=== PATIENT | female | born 1980 | race Caucasian/White ===

== ENCOUNTER → 2019-04-01 | Outpatient (CLI) | payer OTHER ==
[~2019-04-01] MED LIST: /LOR25TA PO; ABIL10TA9 PO; ACET500C OR; ADDE10CA3 PO; ADDERALL IR PO; ATIV0.5T PO; CETI10TA PO; GABA-843 PO; GABA300C2 PO; GRAL600T PO; HAIRTAB5 PO; HYDR-3719 PO; HYDR7.5T38 PO; IBUP800T PO; LAMI25TA PO; LISI2.5T OR; LYRI75CA PO; METH2.5T48 PO; NUCY50TA PO; PRAV40TA2 PO; SPIR-10 PO; SYNT50TA OR; TAB-TAB PO; TOPA50TA PO; TYLE650T25 PO; VENL37TA PO; ZANA4CAP PO; ZYRT10CA PO; [UNRECOGNIZED DRUG - OTHER] PO; estrogen PO; soma PO
--- NOTE | 2019-04-01 10:50 | REP ---
Clinical: Anatomical evaluation. Comparison: None . Findings: Examination demonstrates a single live intrauterine in transverse (head to maternal left) presentation. motion is identified by technologist. Placenta is noted anterior and grade zero without evidence for placenta previa or abruption. Amniotic fluid volume is normal. Cervix measures 4.2 cm in length and appears closed. No evidence for nuchal cord. Gestational age by current measurements 20 weeks 1 day with ERICK 08/18/2019 . FHR equals 153 beats per minute. BPD 5.0 cm 21 weeks 1 day HC 17.5 cm 20 weeks 0 days AC 14.9 cm 20 weeks 1 day FL 3.3 cm 20 weeks 2 days HL 3.1 cm 20 weeks 2 days HC/AC ratio 1.17 Estimated weight 341 grams ( 49th percentile). Anatomical assessment demonstrates normal structures including cranium, choroid plexus, cavum, cerebellum/posterior fossa, facial features, lungs, diaphragm, stomach, cord insertion/three-vessel cord, bladder, and extremities. Limited evaluation of the heart/ventricular outflow tracts, kidneys and spine. Impression: Single live intrauterine demonstrating appropriate weight. Anatomical limitations as noted above may warrant reevaluation and follow-up.
== END ==
LOC: M WHC 09:22
PROVIDERS: ATTEND Obstetrics & Gynecology
DX: O34.211 Maternal care for low transverse scar from previous cesarean delivery (principal)

== ENCOUNTER → 2019-04-24 | Outpatient (REF) | payer OTHER | LOC: M PLALAB 10:55 | PROVIDERS: ATTEND Obstetrics & Gynecology | DX: Z53.9 Procedure and treatment not carried out, unspecified reason (principal); O34.211 Maternal care for low transverse scar from previous cesarean delivery ==

== ENCOUNTER → 2019-05-16 | Outpatient (CLI) | payer OTHER | LOC: M WHC 09:21 | PROVIDERS: ATTEND Obstetrics & Gynecology | DX: O24.112 Pre-existing type 2 diabetes mellitus, in pregnancy, second trimester (principal) ==

== ENCOUNTER → 2019-05-23 | Outpatient (CLI) | payer OTHER ==
--- NOTE | 2019-05-23 14:44 | REP ---
OB ULTRASOUND: Real-time sonographic evaluation of the gravid uterus performed. There is a single living intrauterine gestation. The estimated gestational age is 27 weeks 4 days, based on prior ultrasound, EDC 08/18/2019. Today's measurements indicate greater than expected growth. Biometry and Growth: BPD 75 mm = 30 weeks 2 day, 88th percentile HC 271 mm = 29 weeks 4 days, 91st percentile AC 268 mm = 30 weeks 6 days, over 95th percentile FL 57 mm = 30 weeks 0 days, over 95th percentile HC/AC ratio 1.01 within normal range of 1.0 to 1.18. Estimated weight 1572 grams over 97th percentile. SEEN/GROSSLY UNREMARKABLE Lateral ventricles No Posterior fossa No Upper lip Yes Four-chamber heart Yes LVOT Yes RVOT Yes Stomach Yes Cord insertion Yes Three vessel cord Yes Kidneys Yes Bladder Yes Spine Yes Intracranial structures were seen on prior study. Cervical length: Closed and measures 3.2 cm in length. heart rate: 155 beats per minute. position: Breech. Placenta: Anterior and grade 1 with no previa or abruption. Amniotic fluid: Within normal limits.
== END ==
LOC: M WHC 10:23
PROVIDERS: ATTEND Obstetrics & Gynecology
DX: O24.112 Pre-existing type 2 diabetes mellitus, in pregnancy, second trimester (principal); Z36.89 Encounter for other specified antenatal screening; Z3A.29 29 weeks gestation of pregnancy

== ENCOUNTER → 2019-06-18 | Outpatient (CLI) | payer OTHER | LOC: M WHC 15:05 | PROVIDERS: ATTEND Obstetrics & Gynecology | DX: E11.9 Type 2 diabetes mellitus without complications (principal) ==

== ENCOUNTER → 2019-06-25 | Outpatient (CLI) | payer OTHER ==
[~2019-06-25] MED LIST changes: +ACET-683 PO; +GABA-282 PO; -GABA-843 PO; +LABE20TAB PO; +METF500T13 PO; +OXYC1TAB23 PO; +PERCOCET PO; +PRENCHW PO; -TAB-TAB PO; +TAB-TAB2 PO
--- NOTE | 2019-06-26 02:39 | REP ---
Clinical: Gestational diabetes. well-being. Comparison: 05/23/2019 . Findings: Examination demonstrates a single live intrauterine in cephalic presentation. motion is identified by technologist. Placenta is noted anterior and grade I I without evidence for placenta previa or abruption. Amniotic fluid volume is greater than expected. Cervix measures 3.5 cm in length and appears closed. No evidence for nuchal cord. Gestational age by LMP 32 weeks 2 days with ERICK 08/18/2019 . Gestational age by current measurements 36 weeks 6 days FHR equals 133 beats per minute. Biophysical profile score: 8/8 Amniotic fluid index: 29.4 cm Umbilical cord SD ratio: 2.76 Estimated weight by current biometrical measurements 3920 grams (greater than 97th percentile). Impression: 1. Single live advanced sensation in cephalic presentation demonstrating greater than expected interval growth. 2. Amniotic fluid volume is above normal limits suggesting polyhydramnios. No obvious anatomical abnormality noted.
== END ==
LOC: M WHC 14:36
PROVIDERS: ATTEND Obstetrics & Gynecology
DX: Z36.89 Encounter for other specified antenatal screening (principal); Z3A.36 36 weeks gestation of pregnancy; E11.9 Type 2 diabetes mellitus without complications

== ENCOUNTER → 2019-06-25 | Outpatient (CLI) | payer OTHER | LOC: M WHC 13:24 → MERGE 13:24 | PROVIDERS: ATTEND Obstetrics & Gynecology | DX: Z36.89 Encounter for other specified antenatal screening (principal); E11.9 Type 2 diabetes mellitus without complications ==

== ENCOUNTER → 2019-06-26 | Outpatient (CLI) | payer OTHER ==
[~2019-06-26] MED LIST changes: -ACET-683 PO; -GABA-282 PO; +GABA-843 PO; -LABE20TAB PO; -METF500T13 PO; -OXYC1TAB23 PO; -PERCOCET PO; -PRENCHW PO; +TAB-TAB PO; -TAB-TAB2 PO
== END ==
LOC: M WHC 09:51
PROVIDERS: ATTEND Obstetrics & Gynecology
DX: O24.313 Unspecified pre-existing diabetes mellitus in pregnancy, third trimester (principal)

== ENCOUNTER → 2019-07-03 | Outpatient (REF) | payer OTHER ==
[2019-07-03 10:33] LABS: HEMATOCRIT 35.2 % (36.0-47.0); MEAN CORPUSCULAR HEMOGLOBIN 24.2 pg (27.0-33.0); MEAN CORPUSCULAR HGB CONC 31.3 g/dl (32.0-36.5); MEAN CORPUSCULAR VOLUME 77.4 fl (80.0-96.0); PLATELET COUNT, AUTOMATED 283 10^3/uL (150-450); RED BLOOD COUNT 4.55 10^6/uL (4.00-5.40); WHITE BLOOD COUNT 11.8 10^3/uL (4.0-10.0)
[2019-07-03 11:43] LABS: HEMOGLOBIN A1c 7.7 %
== END ==
LOC: M PLALAB 08:52
PROVIDERS: ATTEND Obstetrics & Gynecology
DX: O24.313 Unspecified pre-existing diabetes mellitus in pregnancy, third trimester (principal)

== ENCOUNTER 2019-07-09 20:14 | Emergency (ER) | payer OTHER ==
[~2019-07-09] VITALS: Ht 167.6 cm; Wt 126.7 kg
[2019-07-09 20:15] VITALS: BP 141/75
[2019-08-15] MEDS ORDERED: OXYC1TAB23 PO (16:43)
== END 2019-07-09 21:10 | disposition admitted as inpatient to this hospital (09) ==
LOC: M ED 20:14
DX: R10.9 Unspecified abdominal pain (principal); Z53.21 Procedure and treatment not carried out due to patient leaving prior to being seen by health care provider

== ENCOUNTER 2019-07-09 20:33 | Outpatient (CLI) | payer OTHER ==
[~2019-07-09] VITALS: Ht 167.6 cm; Wt 126.9 kg
[2019-07-09 20:56] VITALS: BP 129/72
[2019-07-09 21:30] LABS: HEMATOCRIT 34.2 % (36.0-47.0); HEMOGLOBIN 10.7 g/dl (12.0-15.5); MEAN CORPUSCULAR HEMOGLOBIN 23.4 pg (27.0-33.0); MEAN CORPUSCULAR HGB CONC 31.3 g/dl (32.0-36.5); MEAN CORPUSCULAR VOLUME 74.8 fl (80.0-96.0); PLATELET COUNT, AUTOMATED 274 10^3/uL (150-450); RED BLOOD COUNT 4.57 10^6/uL (4.00-5.40)
[2019-07-09 21:40] LABS: INR 1.01
[2019-07-09 21:41] LABS: PARTIAL THROMBOPLASTIN TIME 26.2 SECONDS (25.0-38.4)
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
== END 2019-07-10 00:15 | disposition home or self-care (01) ==
LOC: M LDO 20:33
PROVIDERS: ATTEND Advanced Practice Midwife
DX: Z04.3 Encounter for examination and observation following other accident (principal); W18.2XXA Fall in (into) shower or empty bathtub, initial encounter; Z3A.35 35 weeks gestation of pregnancy; Y99.8 Other external cause status

== ENCOUNTER → 2019-07-17 | Outpatient (REF) | payer OTHER ==
[~2019-07-17] MED LIST changes: +METF500T13 PO
== END ==
LOC: M SFHCWAGY 17:31
PROVIDERS: ATTEND Obstetrics & Gynecology
DX: O09.523 Supervision of elderly multigravida, third trimester (principal)

== ENCOUNTER → 2019-07-18 | Outpatient (CLI) | payer OTHER ==
--- NOTE | 2019-07-19 03:25 | REP ---
Clinical: Anatomical evaluation. Comparison: 07/03/2019. Findings: Examination demonstrates a single live intrauterine in transverse lie presentation. motion is identified by technologist. Placenta is noted anterior and grade I I I without evidence for placenta previa or abruption. Amniotic fluid volume is normal. Cervix appears closed. No evidence for nuchal cord. Gestational age by first US 35 weeks 4 days with ERICK 08/18/2019 . FHR equals 136 beats per minute. Biophysical profile score: 8/8 Amniotic fluid index: 19.6 cm Impression: Single live intrauterine in transverse lie. Biophysical profile score and amniotic fluid volume are normal.
== END ==
LOC: M WHC 15:14
PROVIDERS: ATTEND Obstetrics & Gynecology
DX: O24.313 Unspecified pre-existing diabetes mellitus in pregnancy, third trimester (principal); Z3A.35 35 weeks gestation of pregnancy; O32.2XX0 Maternal care for transverse and oblique lie, not applicable or unspecified

== ENCOUNTER → 2019-07-23 | Outpatient (CLI) | payer OTHER ==
[~2019-07-23] MED LIST changes: +ACET-683 PO; +LABE20TAB PO; +PERCOCET PO; +PRENCHW PO
== END ==
LOC: M LABSMTC 11:03
PROVIDERS: ATTEND Anesthesiology
DX: Z03.818 Encounter for observation for suspected exposure to other biological agents ruled out (principal); Z11.59 Encounter for screening for other viral diseases
CPT/HCPCS: C9803; U0003

== ENCOUNTER 2019-07-24 20:57 | Inpatient (IN) | payer OTHER ==
[~2019-07-24] VITALS: Ht 167.6 cm; Wt 135.0 kg
[~2019-07-24 20:57] MED LIST changes: -ACET-683 PO; -LABE20TAB PO; -METF500T13 PO; -PERCOCET PO; -PRENCHW PO
[2019-07-24] MEDS ORDERED: metFORMIN (GLUCOPHAGE) 500 MG TAB PO SCH (21:00)
[2019-07-24 21:25] VITALS: BP 146/85
[2019-07-24] MEDS ORDERED: D5W/0.9% SODIUM CHLORIDE 1,000 ML IV SCH (21:37)
[2019-07-24] MEDS: BETAMETHASONE SOLUSPAN 6MG/ML 5ML VIAL (J0702 PER 3MG) IM SCH (21:46)
--- NOTE | 2019-07-24 22:03 | HPEPDOC ---
Obstetrical History & Physical General Date of Admission Jul 24, 2019 at 20:57 Primary Care Physician: MIREILLE RAMOS CNM History of Present Illness Patient is a 38-year-old female who is a at 36.4 weeks gestation with an ERICK of 08/16/19 baed off of her LMP and consistent with her first trimester ultrasound.She initiated care in her first trimester with [facility] and transferred care to [facility] in her second trimester. She was diagnosed with pregestational diabetes and placed on insulin, which she was not compliant with. Patient was compliant with visits but not with recommended care. She did not do her echo that was scheduled in March for her to do. Her is also complicated by AMA status, morbid obesity, and ADHD (which she is still taking Adderall for). She presents today with recommendations from Dr. Mcclelland for glucose stabilization and betamethasone injections. She reports active movement. She denies leaking of fluid, vaginal bleeding or contractions. Chief Complaint: Other (betamethasone injections with glycemic control before section) Information Provided By: Patient Age: 38 : 6 Term: 2 Pre-term: 0 Abortions: 3 Livin Care Care: Good Care (poor compliance with management) Dating Final EDC: Aug 16, 2019 Final EDC by: LMP EGA at Admission: 36.4 Antepartum Course Diagnos(e)s AMA Type II diabetes (pregestational diabetes)-poorly controlled Prior section PCOS ADHD, depression, anxiety Height (inches): 66 Pre- weight (lbs.): 252 Admission Weight (lbs.): 297 Change in Weight (lbs.): 45 Past Medical History Past Obstetrical History #1: Date of Delivery: Aug 12, 2006 Gestation: 40 Type of Delivery: Spontaneous Vaginal Del. Sex of Infant: Male (7 lbs 8 oz) Complications: Yes (oligohydramnios) Past Obstetrical History #2: Past Obstetrical History: Multigravida Date of Delivery: Feb 10, 2016 Gestation: 39.2 Type of Delivery: Ceserean section Sex of Infant: Male (9 lbs 3 oz) Complications: Yes (AMA and GDM) [employer] History: Spontaneous , Abnormal Pap, Human papillomavirus(HPV) Past Medical History Medical History morbid obesity pregestational diabetes PCOS GERD Migraines Psoriasis Surgical History: section, Dilatation and Curettage, Other (endoscopy and colonoscopy, oral surgery) Family History Significant Family History: Cancer (prostate cancer, bone cancer, throat ca ncer), Heart disease, Hypertension, Hyperlipidemia, Other (stroke, migraines, Alzheimers, stroke, GA) Social History Marital Status: Family situation: Spouse/partner home Psychosocial History: Anxiety, Att. deficit disorder, Depression * Smoker: non-smoker Alcohol: Denies Drugs: denies Abuse Violence Screening Have you been hit/kicked/slapp: No Have you been sexually assault: No Allergies Coded Allergies: NSAIDS (Non-Steroidal Anti-Inflamma (Verified Allergy, Intermediate, swelling, 07/24/19) meloxicam (Verified Allergy, Mild, rash, 07/24/19) tramadol (Verified Allergy, Mild, swelling and redness, 07/24/19) pregabalin (Verified Adverse Reaction, Intermediate, nightmares/depression, 07/24/19) Medications Scheduled Dextroamphetamine/Amphetamine (Adderall Xr 10 mg Capsule) 10 Mg Cap, 30 MG PO DAILY Metformin HCl (Metformin HCl) 500 Mg Tablet, 1 TAB PO BID [Adderall Ir] , 10 MG PO DAILY Physical Examination Physical Examination GENERAL: Alert and oriented times three. BREAST: . ABDOMEN: Gravid and non-tender to touch. FETUS: Is vertex (VTX) by sterile vaginal examination (SVE), fetus is vertex (VTX) by Javi. HEART RATE: Regular rate and rhythm. LUNGS: Clear to auscultation (CTA). EXTREMITIES: No edema. No clonus. Deep tendon reflexes (DTRs) + 2. Laboratory Data 24H LABS Laboratory Tests 2 07/24/19 21:39: Bedside Glucose (Misc Panel) 138H Urine Culture: No Growth Pertinent Laboratoy Data Blood Type: A+ RBC Antibody Screen: Negative HIV: Negative Hepatitis B: Negative Hepatitis C: Negative Rapid Plasma Reagin: Nonreactive Rubella: Immune Chlamydia/Gonorrhea: Negative Group B Streptococcus: Negative Quad Screen Test: Negative Diag/Inter Therapy NIPT testing is low risk Steroid Therapy Steroid Therapy: Yes Date #1: Jul 24, 2019 Reason early delivery with poor glycemic control Assessment Heart Rate (FHR): 150 Variability: Moderate Accelerations: Positive Decelerations: None Tocometer Contractions: Yes Frequency: irregular Multi-drug resistant Organism: No history of MDRO Assessment/Plan Assessment IUP at 36.4 weeks gestation Category I FHR tracing prior section-desires repeat pregestational diabetes with poor control AMA morbid obesity Plan Admit to L&D. Plan of care collaborated with Dr. Mcclelland. KIRBY ad constantin. Diet: carbohydrate counted. Saline lock to be started. Counseled on plan of care. NSTs every 4 hours. Insulin drip per protocol/order. Fingersticks every 2 hours. Betamethasone IM injection now and again in 24 hours. Patient will have her section Monday morning. MIREILLE RAMOS CNM Jul 24, 2019 22:03
[2019-07-24] MEDS: NS 1,000 ML IV SCH (22:32)
[2019-07-24] MEDS: INSULIN REGULAR IN 0.9 % NACL 100 UNIT in IV 1 EA IV SCH ×2 (22:43)
[2019-07-24 23:07] VITALS: BP 134/65
[2019-07-24] MEDS ORDERED: METF500T13 PO (23:28)
[2019-07-25] VITALS (14 sets, daily range): BP systolic 124–145; BP diastolic 58–78
[2019-07-25] MEDS: INSULIN IV RATE CHANGE DOCUMENTATION ML/HR XX SCH ×10 (04:17→21:27)
[2019-07-25] MEDS: NS 1,000 ML IV SCH ×3 (06:04→22:01)
[2019-07-25] MEDS: ACETAMINOPHEN 500 MG TAB PO PRN ×2 (13:20→20:53)
[2019-07-25] MEDS: BETAMETHASONE SOLUSPAN 6MG/ML 5ML VIAL (J0702 PER 3MG) IM SCH (21:59)
[2019-07-25] MEDS: INSULIN REGULAR IN 0.9 % NACL 100 UNIT in IV 1 EA IV SCH ×2 (22:01)
[2019-07-25] MEDS ORDERED: ceFAZolin SOD 2 GM in IV 1 EA IV ONE (22:15)
[2019-07-25] MEDS ORDERED: BICITRA 30ML SOLN UDC PO ONE (22:15)
[2019-07-26] VITALS (10 sets, daily range): BP systolic 122–152; BP diastolic 63–88
[2019-07-26] MEDS: INSULIN IV RATE CHANGE DOCUMENTATION ML/HR XX SCH ×2 (02:23→03:04)
[2019-07-26 03:19] LABS: HEMATOCRIT 28.7 % (36.0-47.0); MEAN CORPUSCULAR HEMOGLOBIN 23.5 pg (27.0-33.0); MEAN CORPUSCULAR HGB CONC 31.4 g/dl (32.0-36.5); MEAN CORPUSCULAR VOLUME 74.9 fl (80.0-96.0); PLATELET COUNT, AUTOMATED 225 10^3/uL (150-450); RED BLOOD COUNT 3.83 10^6/uL (4.00-5.40); WHITE BLOOD COUNT 11.8 10^3/uL (4.0-10.0)
[2019-07-26 03:39] LABS: ALT/SGPT 12 U/L (12-78); BILIRUBIN,TOTAL 0.2 MG/DL (0.2-1.0); CREATININE FOR GFR 0.79 MG/DL (0.55-1.30); GLOMERULAR FILTRATION RATE > 60.0 (>60); LDH LACTATE DEHYDROGENASE 187 U/L (84-246); URIC ACID 6.3 MG/DL (2.6-6.0)
[2019-07-26] MEDS: NS 1,000 ML IV SCH (04:08)
[2019-07-26] MEDS ORDERED: METOCLOPRAMIDE INJ 10MG/2ML VIAL (J2765 PER 1) IV PRN (07:00)
[2019-07-26] MEDS ORDERED: diphenhydrAMINE 50MG/ML VIAL (J1200) IV PRN ×2 (07:00→10:00)
[2019-07-26] MEDS ORDERED: NALOXONE INJ 0.4MG/1ML VIAL (J2310 PER 1MG) IV PRN ×2 (07:00)
[2019-07-26] MEDS ORDERED: ONDANSETRON 4MG/2ML VIAL IV PRN ×3 (07:00→10:00)
[2019-07-26] MEDS ORDERED: NALBUPHINE HCL 10 MG/ML AMP (J2300) IV PRN ×2 (07:00→10:00)
[2019-07-26] MEDS ORDERED: dexameTHASONE 4 MG/ML 1ML VIAL (J1100 PER 1MG) As Ordered ONE (07:10)
[2019-07-26] MEDS ORDERED: ONDANSETRON 4MG/2ML VIAL As Ordered ONE (07:10)
[2019-07-26] MEDS ORDERED: MORPHINE PRES-FREE INJ 10 MG/10 ML VIAL (J2274) As Ordered ONE (07:10)
[2019-07-26] MEDS ORDERED: OXYTOCIN INJ 10 UNITS/ML VIAL (J2590) As Ordered ONE (07:16)
[2019-07-26] MEDS ORDERED: ACETAMINOPHEN 1000MG 100ML IV BTL (OFIRMEV) (J0131 PER 10MG) As Ordered ONE (07:57)
[2019-07-26] MEDS ORDERED: ceFAZolin 1GM VIAL (J0690 PER 500MG) As Ordered ONE (08:10)
[2019-07-26] MEDS ORDERED: propofoL 200 MG/20 ML VIAL As Ordered ONE (08:55)
[2019-07-26] MEDS ORDERED: LR 1,000 ML IV SCH (09:21)
[2019-07-26] MEDS ORDERED: OXYTOCIN DRIP 30 UNITS in IV 1 EA IV SCH (09:21)
[2019-07-26] MEDS ORDERED: MEASLES,MUMPS,RUBELLA VACCINE INJ (MMR-II) (90707) SC SCH (09:30)
[2019-07-26] MEDS ORDERED: RHOGAM 300 MCG (1500 IU) INJ (J2790) IM SCH (09:30)
[2019-07-26] MEDS ORDERED: MOM 30ML SUSPENSION UDC PO PRN (09:30)
[2019-07-26] MEDS ORDERED: OXYTOCIN 30 UNITS IN 0.9% NaCl 500ML IV BAG (J2590) As Ordered ONE (09:33)
--- NOTE | 2019-07-26 09:43 | ROOPDOC ---
[facility] Report Of Operation Report of Operation DATE OF PROCEDURE: 07/26/19 SURGEON: Dixie Mcclelland M.D. SENIOR INFORMATION SYSTEMS ARCHITECT: Caleb Holley DO ANESTHESIA: Spinal PREOPERATIVE DIAGNOSIS: 1. History of prior section 2. Intrauterine at 37 weeks 3. Satisfied parity with undesired fertility 4. Poorly controlled pre-gestational diabetes POSTOPERATIVE DIAGNOSIS: 1. History of prior section 2. Intrauterine at 37 weeks 3. Satisfied parity with undesired fertility 4. Poorly controlled pre-gestational diabetes ESTIMATED BLOOD LOSS: 800 mL URINE OUTPUT: 100 mL INTRAVENOUS FLUIDS: 2000 mL lactated Ringer solution PREOPERATIVE ANTIBIOTICS: 3 g of Ancef OPERATIVE FINDINGS: Liveborn female infant, Apgars 9 and 9. Weight was 5110 g 11 lbs. 4 oz. SPECIMENS:, Placenta and bilateral segments of fallopian tubes DESCRIPTION OF PROCEDURE: After informed consent was obtained and written consent was reviewed. The patient was brought to the operating room where spinal anesthesia was placed. She was then placed in the supine position with a left lateral tilt. Jeter catheter was placed and to gravity. Patient was then prepped and draped in the normal sterile fashion. A timeout operating room was performed identifying the patient, procedure be performed as well as drug allergies. Anesthesia was tested and deemed to be adequate. Pfannenstiel skin incision was made and this was carried down to the underlying rectus fascia. The fascia was then scored and this incision was extended bilaterally. The fascia was then dissected off the underlying rectus muscle superiorly and inferiorly. The rectus muscles were then in the midline. The peritoneum is then entered. Vesicouterine peritoneum was then tented and excised and a bladder flap was created. Mobius retractor was then placed. Next, a curvilinear incision was then made in the lower uterine segment. Amniotomy was performed, productive, clear fluid. The head was brought to the level of the incision atraumatically and delivered along the shoulders and corpus. The cord was clamped x 2. The infant was brought over to the warmer with a good cry. Placenta was drained and delivered grossly intact. The uterus was cleared of all clots and debris and the uterine incision was then closed in 2 layers using 0 Vicryl, first in a running locking fashion followed by second layer for imbrication. Several [id number] stitches was placed revealing hemostasis. Attention was then turned to a bilateral [place] tubal ligation. A window was created in the right mesosalpinx. This area was doubly ligated with 3-0 chromic and was excised with good hemostasis noted. In a similar fashion, the left fallopian tube was placed on traction. A window was created in the mesosalpinx. This area was doubly ligated with 3-0 chromic and was excised, and hemostasis was noted. The abdomen suctioned. Surgical sites reinspected and noted be hemostatic. The retractor was then removed. The anterior peritoneum was then reapproximated with 3-0 Vicryl. The rectus muscles were reapproximated 3-0 Vicryl. The fascia was then closed using 0 Vicryl in a running nonlocking fashion. The subcutaneous tissues was then irrigated and suctioned. Subcutaneous tissue was reapproximated using 3-0 Vicryl. Several subdermal stitch is placed using 3-0 Vicryl and the skin was closed with 4-0 Monocryl and subcuticular fashion. This incision was then cleaned and dried and was dressed. The patient was then taken to recovery in stable condition. All counts were correct. My instructor adjunct surgical technician Dr. Holley played in an essential role during the operation. They assisted with tissue identification retraction, delivery of the , as well as wound closure. DIXIE MCCLELLAND MD. Jul 26, 2019 09:43
[2019-07-26] MEDS ORDERED: fentaNYL 100 MCG/2 ML INJECTION (J3010) As Ordered ONE (09:59)
[2019-07-26] MEDS ORDERED: MEPERIDINE INJ 25 MG/ML VIAL (J2175) IV PRN (10:00)
[2019-07-26] MEDS ORDERED: oxyCODONE 5MG TAB PO PRN (10:00)
[2019-07-26] MEDS ORDERED: HYDROMORPHONE HCL 0.5 MG/ 0.5 ML SYRINGE (J1170 PER 1) IV PRN (10:00)
[2019-07-26] MEDS: fentaNYL 100 MCG/2 ML INJECTION (J3010) IV PRN ×2 (10:01→10:18)
[2019-07-26] MEDS: metFORMIN (GLUCOPHAGE) 500 MG TAB PO SCH (18:29)
[2019-07-26] MEDS: DOCUSATE SODIUM 100 MG CAP PO SCH (21:12)
[2019-07-26] MEDS: PERCOCET 5MG/325MG TAB PO PRN (21:12)
[2019-07-27 02:00] VITALS: BP 132/67
[2019-07-27] MEDS: PERCOCET 5MG/325MG TAB PO PRN ×4 (05:52→23:21)
[2019-07-27 06:00] VITALS: BP 144/74
--- NOTE | 2019-07-27 07:17 | IPNPDOC ---
Text Note Date of Service The patient was seen on 07/27/19. NOTE PO #1 Feels well. Adequate pain management. OOB independently. Voiding. VSS, afebrile, normotensive Breasts soft, pumping Fundus firm Dressing intact, old drainage Lochia rubra scant without odor PO #1 Routine care. Consider discharge tomorrow VS,Fishbone, I+O VS, Fishbone, I+O Vital Signs Date Time Temp Pulse Resp B/P (MAP) Pulse Ox O2 Delivery O2 Flow Rate FiO2 07/27/19 06:22 18 07/27/19 06:00 98.2 77 144/74 (97) 97 Room Air I&O- Last 24 Hours up to 6 AM 07/27/19 06:00 Intake Total 2085 ml Output Total 1075 ml Balance 1010 ml Roxanne Skaggs CNM Jul 27, 2019 07:17
[2019-07-27 07:44] LABS: HEMATOCRIT 24.6 % (36.0-47.0); HEMOGLOBIN 7.6 g/dl (12.0-15.5); MEAN CORPUSCULAR HEMOGLOBIN 23.5 pg (27.0-33.0); MEAN CORPUSCULAR HGB CONC 30.9 g/dl (32.0-36.5); MEAN CORPUSCULAR VOLUME 75.9 fl (80.0-96.0); PLATELET COUNT, AUTOMATED 226 10^3/uL (150-450); RED BLOOD COUNT 3.24 10^6/uL (4.00-5.40); WHITE BLOOD COUNT 14.2 10^3/uL (4.0-10.0)
[2019-07-27] MEDS: metFORMIN (GLUCOPHAGE) 500 MG TAB PO SCH ×2 (08:16→18:05)
[2019-07-27] MEDS: PRENATAL VITAMINS CHEWABLE TABLET PO SCH (08:16)
[2019-07-27] MEDS: DOCUSATE SODIUM 100 MG CAP PO SCH ×2 (08:16→21:00)
[2019-07-27 10:00] VITALS: BP 137/73
[2019-07-27] MEDS: SIMETHICONE 80 MG CHEW TAB PO PRN ×2 (11:59→19:01)
[2019-07-27 14:00] VITALS: BP 157/89
[2019-07-27 18:00] VITALS: BP 149/76
[2019-07-27] MEDS ORDERED: MORPHINE 4 MG/ML 1ML VIAL/SYRINGE (J2270) IV PRN (18:00)
[2019-07-27] MEDS: LR 1,000 ML IV SCH (19:00)
[2019-07-27 22:00] VITALS: BP 148/73
[2019-07-28 02:00] VITALS: BP 149/66
[2019-07-28] MEDS: PERCOCET 5MG/325MG TAB PO PRN ×3 (06:45→18:46)
[2019-07-28] MEDS: DOCUSATE SODIUM 100 MG CAP PO SCH ×2 (08:18→21:00)
[2019-07-28] MEDS: metFORMIN (GLUCOPHAGE) 500 MG TAB PO SCH ×2 (08:18→18:44)
[2019-07-28] MEDS: SIMETHICONE 80 MG CHEW TAB PO PRN (08:18)
[2019-07-28] MEDS: PRENATAL VITAMINS CHEWABLE TABLET PO SCH (08:18)
[2019-07-28 09:52] LABS: HEMATOCRIT 24.5 % (36.0-47.0); HEMOGLOBIN 7.6 g/dl (12.0-15.5); MEAN CORPUSCULAR HEMOGLOBIN 23.7 pg (27.0-33.0); MEAN CORPUSCULAR VOLUME 76.3 fl (80.0-96.0); PLATELET COUNT, AUTOMATED 246 10^3/uL (150-450); RED BLOOD COUNT 3.21 10^6/uL (4.00-5.40)
[2019-07-28 10:00] VITALS: BP 148/86
[2019-07-28 18:00] VITALS: BP 155/77
[2019-07-29] MEDS: PERCOCET 5MG/325MG TAB PO PRN ×4 (00:26→20:46)
[2019-07-29 06:00] VITALS: BP 143/73
[2019-07-29 07:51] LABS: HEMATOCRIT 23.5 % (36.0-47.0); HEMOGLOBIN 7.3 g/dl (12.0-15.5); MEAN CORPUSCULAR HEMOGLOBIN 23.5 pg (27.0-33.0); MEAN CORPUSCULAR HGB CONC 31.1 g/dl (32.0-36.5); MEAN CORPUSCULAR VOLUME 75.6 fl (80.0-96.0); PLATELET COUNT, AUTOMATED 254 10^3/uL (150-450); RED BLOOD COUNT 3.11 10^6/uL (4.00-5.40); WHITE BLOOD COUNT 11.1 10^3/uL (4.0-10.0)
[2019-07-29] MEDS: DOCUSATE SODIUM 100 MG CAP PO SCH ×2 (08:07→20:46)
[2019-07-29] MEDS: metFORMIN (GLUCOPHAGE) 500 MG TAB PO SCH ×2 (08:07→17:51)
[2019-07-29] MEDS: PRENATAL VITAMINS CHEWABLE TABLET PO SCH (08:08)
[2019-07-29] MEDS ORDERED: LABETALOL 100 MG TAB PO SCH (09:00)
[2019-07-29] MEDS: SIMETHICONE 80 MG CHEW TAB PO PRN ×2 (14:39→20:44)
[2019-07-29] MEDS: LR 1,000 ML IV SCH (17:52)
[2019-07-29 18:05] VITALS: BP_SYST 164; BP_SYST 202; BP_DIAS 102
[2019-07-29 18:20] VITALS: BP 168/104
[2019-07-29] MEDS: LABETALOL 200 MG TAB PO SCH (19:06)
[2019-07-29 19:57] LABS: ALT/SGPT 24 U/L (12-78); BILIRUBIN,TOTAL 0.2 MG/DL (0.2-1.0); GLOMERULAR FILTRATION RATE > 60.0 (>60); LDH LACTATE DEHYDROGENASE 239 U/L (84-246); URIC ACID 5.7 MG/DL (2.6-6.0)
[2019-07-30] MEDS: PERCOCET 5MG/325MG TAB PO PRN ×3 (02:07→13:24)
[2019-07-30 05:16] VITALS: BP 146/92
[2019-07-30 07:47] VITALS: BP 142/86
[2019-07-30] MEDS: metFORMIN (GLUCOPHAGE) 500 MG TAB PO SCH (08:31)
[2019-07-30] MEDS: PRENATAL VITAMINS CHEWABLE TABLET PO SCH (08:31)
[2019-07-30 08:32] VITALS: BP 142/86
[2019-07-30] MEDS: LABETALOL 200 MG TAB PO SCH (08:32)
[2019-07-30] MEDS: DOCUSATE SODIUM 100 MG CAP PO SCH (08:32)
[2019-07-30] MEDS: LR 1,000 ML IV SCH (08:34)
[2019-07-30] MEDS ORDERED: PERCOCET PO (08:55)
[2019-07-30] MEDS ORDERED: ACET-683 PO (08:55)
[2019-07-30] MEDS ORDERED: LABE20TAB PO (08:55)
[2019-07-30] MEDS ORDERED: PRENCHW PO (08:55)
--- NOTE | 2019-07-30 09:29 | DS.PDOC ---
Discharge Summary General Date of Admission Jul 24, 2019 at 20:57 Date of Discharge 07/30/19 Attending Physician: LAUREN BROOKS MD. Discharge Summary PROCEDURES PERFORMED DURING STAY: Primary section at 37 weeks. ADMITTING DIAGNOSES: 1. IUP at 36+ weeks gestation admission for betamethasone. 2. Pregestational diabetes 3. maternal care for previous section-desires repeat with tubal ligation 4. Chronic hypertension 5. Non compliant with diabetes medication DISCHARGE DIAGNOSES: 1. Day 4 postoperative 2. Pregestational diabetes 3. Chronic hypertension. COMPLICATIONS/CHIEF COMPLAINT: Pregestational Diabetic, Macrosomia, Previous.... HISTORY OF PRESENT ILLNESS: Patient is a 38-year-old female who presented at 36 weeks gestation for control of her pregestational diabetes with insulin 2 days prior to her repeat section and for betamethasone. She was presumed to have a macrosomic fetus. She had an uncomplicated repeat section with a tubal ligation. The baby was macrosomic weighting 11+ lbs. the baby did go to the NICU for glucose instability. During her stay her Labetalol was increased to 200 mg BID. She does not desire to continue with insulin and desires to continue with metformin. She will not take insulin. DISCHARGE MEDICATIONS: Please see below. ALLERGIES: Please see below. PHYSICAL EXAMINATION ON DISCHARGE: VITAL SIGNS: Please see below. GENERAL: Alert and oriented. CARDIOVASCULAR EXAMINATION: RRR with no murmurs, gallops, or rubs. RESPIRATORY EXAMINATION: regular rate for patient. Lungs clear bilaterally. ABDOMINAL EXAMINATION: morbidly obese, dressing is intact, no erythema around dressing EXTREMITIES: 1+ pitting edema bilateral feet and legs SKIN: warm and dry LABORATORY DATA: Please see below. ACTIVITY: As tolerated. DIET: regular DISCHARGE INSTRUCTIONS: 1. Patient to be discharged to home. 2. She is to follow-up in 2 weeks and 6 weeks . 3. Education done on signs of infection, care of incision, signs of mastitis, DVT, pulmonary embolism, pain management, and hemorrhage. DISCHARGE CONDITION: Stable. Vital Signs/I&Os Vital Signs Date Time Temp Pulse Resp B/P (MAP) Pulse Ox O2 Delivery O2 Flow Rate FiO2 07/30/19 08:33 16 Room Air 07/30/19 08:32 72 142/86 07/30/19 05:16 97.9 97 I&O- Last 24 Hours up to 6 AM 07/30/19 05:59 Intake Total 180 ml Balance 180 ml Laboratory Data Labs 24H Laboratory Tests 2 07/29/19 19:00: Glomerular Filtration Rate > 60.0, Uric Acid 5.7, Total Bilirubin 0.2, Aspartate Amino Transf (AST/SGOT) 36, Alanine Aminotransferase (ALT/SGPT) 24, Lactate Dehydrogenase 239 CBC/BMP Laboratory Tests 07/29/19 19:00 Discharge Medications Scheduled Dextroamphetamine/Amphetamine (Adderall Xr 10 mg Capsule) 10 Mg Cap, 30 MG PO DAILY, (Reported) Labetalol HCl (Labetalol HCl) 200 Mg Tablet, 200 MG PO BID Metformin HCl (Metformin HCl) 500 Mg Tablet, 1 TAB PO BID, (Reported) Pnv No.118/Iron Fumarate/FA ( 19 Chewable Tablet) 1 Each Tab.chew, 1 TAB PO DAILY [Adderall Ir] , 10 MG PO DAILY, (Reported) Scheduled PRN Acetaminophen (Acetaminophen) 500 Mg Tablet, 1,000 MG PO Q12HP PRN for PAIN Oxycodone/Acetaminophen (Oxycodone-Acetaminophen 5-325) 1 Each Tablet, 1 TAB PO Q6HP PRN for MODERATE/SEVERE PAIN (PS 5-10) Allergies Coded Allergies: NSAIDS (Non-Steroidal Anti-Inflamma (Verified Allergy, Intermediate, swelling, 07/24/19) meloxicam (Verified Allergy, Mild, rash, 07/24/19) tramadol (Verified Allergy, Mild, swelling and redness, 07/24/19) pregabalin (Verified Adverse Reaction, Intermediate, nightmares/depr ession, 07/24/19) MIREILLE RAMOS CNM Jul 30, 2019 09:29
== END 2019-07-30 13:40 | disposition home or self-care (01) | DRG 540 ==
LOC: M LDI 20:57 → M OBS 07-26 11:23
PROVIDERS: ADMIT Obstetrics & Gynecology; ATTEND Obstetrics & Gynecology
PROC: 0UB70ZZ Excision of Bilateral Fallopian Tubes, Open Approach (ICD-10-PCS; 2019-07-26)
PROC: 10D00Z1 Extraction of Products of Conception, Low, Open Approach (ICD-10-PCS; principal; 2019-07-26 07:30)
DX: O24.12 Pre-existing type 2 diabetes mellitus, in childbirth (principal); E11.65 Type 2 diabetes mellitus with hyperglycemia; O99.214 Obesity complicating childbirth; E66.01 Morbid (severe) obesity due to excess calories; Z3A.36 36 weeks gestation of pregnancy; O34.211 Maternal care for low transverse scar from previous cesarean delivery; O99.344 Other mental disorders complicating childbirth; F90.9 Attention-deficit hyperactivity disorder, unspecified type; F32.9 Major depressive disorder, single episode, unspecified; F41.9 Anxiety disorder, unspecified; Z79.84 Long term (current) use of oral hypoglycemic drugs; Z91.19 Patient's noncompliance with other medical treatment and regimen; Z91.14 Patient's other noncompliance with medication regimen; Z37.0 Single live birth; Z30.2 Encounter for sterilization

== ENCOUNTER → 2023-02-01 | Outpatient (REF) ==
[~2023-02-01] MED LIST changes: +ACET-683 PO; +GABA-282 PO; -GABA-843 PO; +LABE20TAB PO; +METF500T13 PO; +OXYC1TAB23 PO; +PERCOCET PO; +PRENCHW PO; -TAB-TAB PO; +TAB-TAB2 PO
== END ==
LOC: M PLAIMG 11:21
PROVIDERS: ATTEND Internal Medicine
DX: R52 Pain, unspecified (principal)